=== PATIENT | female | born 1985 | race Hispanic/Latino ===

== ENCOUNTER → 2024-10-08 | Day surgery (SDC) | payer BC ==
[2024-10-04 09:30] LABS: BASOPHILS % 0.5 % (0.0-1.0); EOSINOPHILS # (AUTO) 0.3 (0.0-0.4); EOSINOPHILS % 3.4 % (0.0-6.0); HEMATOCRIT 42.7 % (34.2-44.1); HEMOGLOBIN 13.9 g/dL (12.0-16.0); LYMPHOCYTES # (AUTO) 2.4 (1.0-3.2); LYMPHOCYTES % 31.9 % (18.0-39.1); MEAN CORPUSCULAR HEMOGLOBIN 27.8 pg (28-32); MEAN CORPUSCULAR HGB CONC 32.6 g/dL (31-35); MEAN CORPUSCULAR VOLUME 85.4 fL (81-99); MONOCYTES # (AUTO) 0.4 (0.2-0.8); MONOCYTES % 5.8 % (4.4-11.3); NEUTROPHILS # (AUTO) 4.4 (2.1-6.9); NEUTROPHILS % 58.1 % (38.7-80.0); PLATELET COUNT 229 x10e3/uL (140-360); RED CELL DISTRIBUTION WIDTH 14.3 % (11.7-14.4); WHITE BLOOD COUNT 7.64 x10e3/uL (4.8-10.8)
[~2024-10-08] MED LIST: ADDERALL XR 1010 MG; DEXAMETHASONE SOD PHOS INJ 4 MG/ML SDV ONE; FAMOTIDINE 20 MG/2 ML VIAL IV ONE; FENTANYL CITRATE/PF 100MCG/2 ML INJ ONE; FLUOXETINE HCL20 MG PO; GLYCOPYRROLATE INJ 0.2 MG/ML VIAL ONE; KETAMINE 50MG/5ML SYR ONE; KETOROLAC TROMETHAMINE 30 MG/ML VIAL ONE; LIDOCAINE HCL 2% LOCAL INJ 5 ML SDV VIAL INJ ONE; MIDAZOLAM HCL 2 MG/2 ML VIAL ONE; ONDANSETRON HCL INJ 2MG/ML 2ML 2 MG/ML VIAL ONE; PROPOFOL IV EMULSION 10 MG/ML 20 ML VIAL ONE; TRAZODONE HCL50 MG PO; VITAMIN D31 ML
[2024-10-08] MEDS: LACTATED RINGER'S 1,000 ML ONE (06:06)
[2024-10-08] MEDS: CEFAZOLIN SODIUM 2 GM ONE (06:06)
[2024-10-08 08:40] VITALS: TEMP 98.2
[2024-10-08 09:30] VITALS: BP 147/87; PULSE 75; RESP 16; O2SAT 99
[2024-10-08] MEDS: HYDROCODONE/APAP 5MG-325MG TAB ONE (12:14)
== END | disposition home or self-care (01) ==
LOC: OR 05:37
PROVIDERS: ATTEND Podiatrist Foot Surgery
DX: S93.321A Subluxation of tarsometatarsal joint of right foot, initial encounter (principal); X58.XXXA Exposure to other specified factors, initial encounter; Q66.211 Congenital metatarsus primus varus, right foot; M20.41 Other hammer toe(s) (acquired), right foot; M20.11 Hallux valgus (acquired), right foot; E66.01 Morbid (severe) obesity due to excess calories; F90.9 Attention-deficit hyperactivity disorder, unspecified type; F32.A Depression, unspecified; Z01.810 Encounter for preprocedural cardiovascular examination; Z01.812 Encounter for preprocedural laboratory examination; Z79.899 Other long term (current) drug therapy
CPT/HCPCS: 28285 ×4; 28292; 28730; 36415; 73620; 81025; 84702; 85025; 93005; C1713 ×2; J1100; J1885; J2003; J2250; J2405; J2704; J3010; J7121